=== PATIENT | female | born 1980 | race Caucasian/White ===

== ENCOUNTER 2017-08-03 09:50 | Emergency (ER) | payer OTHER ==
[~2017-08-03] VITALS: Ht 162.6 cm; Wt 63.5 kg
[~2017-08-03 09:50] MED LIST: ABILIFY 5 MG TAB5 MG PO; ACCUNEB SO1.25 MG/1 INH; AMBIEN 5 MG TABL5 M1 PO; ANALPRAM HC 1%30 GM RECTAL; ANTIVERT25 MG PO; BENADRYL25 MG PO; CIPRO500 MG PO; CIPROFLOXACIN500 M1 PO; CLONAZEPAM; CLONAZEPAM PO; COMPAZINE10 MG PO; DEPO-PROVERA; DIAZEPAM2 MG PO; DONNATAL EXTEN1 EACH PO; FAMOTIDINE PO; FIORICET 50-321 EACH; FIORICET-COD 51 EACH PO; FIORINAL WITH1 EACH PO; FLAGYL500 MG PO; FLEXERIL PO; HYDROCODON-ACE1 EAC7 PO; IMITREX 50 MG T50 MG PO; KEFLEX500 MG PO; LAMICTAL PO; LAMICTAL XR200 MG PO; LEVAQUIN 750 M750 MG; LEVSIN SL; LEXAPRO; MEDROLDOSEPACK PO; NASONEX17 GM; NORCO 5-325 TA1 EAC1 PO; NORCO 5-325 TA1 EACH PO; ONDANSETRON HCL4 M2 PO; PAIN & FEVER325 MG PO; PAXIL20 MG PO; PERCOCET 5-3251 EACH PO; PERCOCET 7.5-31 EACH PO; PHENERGAN 25 MG25 M1 PO; PHENERGAN25 MG RE; PRENATAL; PREVACID 30MG C30 M1 PG; PREVACID15 MG PO; PROAIR HFA8.5 GM INH; PROMETHAZINE D480 ML PO; PROTONIX40 MG PO; PYRIDIUM200 MG PO; SEROQUEL; SEROQUEL PO; SEROQUEL XR 30300 M1 PO; TESSALON PERLE100 MG PO; TOPAMAX50 MG PO; TRANSDERM-SCOP1 EACH TRANSDERM; TYLOX 5-500 CA1 EACH PO; ULTRAM 50MG TAB50 MG PO; VALIUM10 MG; VALIUM10 MG PO; XANAX 0.5 MG0.5 MG PO; ZOFRAN; ZOFRAN4 MG PO; ZPAK PO; ZYRTEC10 M2 PO; ZYRTEC10 M5 PO; [UNRECOGNIZED DRUG - OTHER]; [UNRECOGNIZED DRUG - OTHER]; [UNRECOGNIZED DRUG - OTHER]; [UNRECOGNIZED DRUG - OTHER] MC
[2017-08-03 10:24] LABS: URINE BLOOD TRACE (Negative); URINE CLARITY CLEAR; URINE COLOR YELLOW; URINE GLUCOSE-RANDOM TRACE (Negative); URINE KETONES NEGATIVE (Negative); URINE PROTEIN 1+ (Negative); URINE SPECIFIC GRAVITY 1.015 (1.005-1.030)
[2017-08-03 10:28] LABS: ICTOTEST (BILI CONFIRMATORY) Positive (Negative); URINE BILIRUBIN 1+ (Negative); URINE LEUKOCYTES-REFLEX 2+ (Negative); URINE NITRITE-REFLEX POSITIVE (Negative)
[2017-08-03 10:33] LABS: SQUAMOUS 4-10 Moderate /LPF (0-3); URINE RBC 3-10 Few /HPF (0-2); WBC CLUMPS Few (None Seen)
[2017-08-03 10:34] LABS: BACTERIA-REFLEX 1-9 Few /HPF (None Seen); CRYSTALS None Seen /LPF (None Seen); MUCUS 0-3 Light strn/LPF (None Seen); WAXY CAST 0-3 Few /LPF (None Seen)
[2017-08-03] MEDS ORDERED: MACROBID 100 M100 M1 PO (10:44)
[2017-08-03] MEDS ORDERED: ZOFRAN4 MG PO (10:49)
[2017-08-03 12:10] VITALS: BP 105/64
[2017-08-03] MEDS ORDERED: BACTRIM DS TAB1 EACH PO (12:47)
== END 2017-08-03 12:12 | disposition home or self-care (01) ==
LOC: M.ERS 09:50
PROVIDERS: Nurse Practitioner Family
DX: N39.0 Urinary tract infection, site not specified (principal); F41.0 Panic disorder [episodic paroxysmal anxiety]; F41.9 Anxiety disorder, unspecified; I45.6 Pre-excitation syndrome; Z90.49 Acquired absence of other specified parts of digestive tract; Z87.440 Personal history of urinary (tract) infections; Z87.442 Personal history of urinary calculi; Z88.8 Allergy status to other drugs, medicaments and biological substances; Z91.041 Radiographic dye allergy status; Z88.5 Allergy status to narcotic agent

== ENCOUNTER 2018-05-16 13:12 | Emergency (ER) | payer OTHER ==
[~2018-05-16] VITALS: Ht 162.6 cm; Wt 63.5 kg
[~2018-05-16 13:12] MED LIST changes: +BACTRIM DS TAB1 EACH PO; +MACROBID 100 M100 M1 PO
[2018-05-16 14:15] LABS: ABSOLUTE EOSINOPHILS 0.1 thou/uL (0.0-0.7); ABSOLUTE LYMPHOCYTES 1.8 thou/uL (0.8-5.3); ABSOLUTE MONOCYTES 0.3 thou/uL (0.0-1.2); ABSOLUTE NEUTROPHILS 3.5 thou/uL (1.6-8.1); BASOPHILS 0.6 %; EOSINOPHILS 1.4 %; HEMATOCRIT 40.8 % (37.0-47.0); HEMOGLOBIN 14.1 gm/dL (12.0-15.0); LYMPHOCYTES 31.2 %; MCH 31.6 pg (26.0-34.0); MCHC 34.6 g/dL (28.0-37.0); MCV 91.2 fL (80.0-100.0); MPV 7.1 fl. (7.2-11.1); NUCLEATED RBCS 0 /100WBC; PLATELET COUNT* 284 thou/uL (150-400); POLYS 61.8 %; RBC 4.47 mil/uL (4.20-5.00); RDW-CV 13.1 % (10.5-14.5); WBC 5.6 thou/uL (4.0-11.0)
[2018-05-16 14:20] LABS: ANION GAP 10 mmol/L (7-16); BUN 8 mg/dL (7-18); CALCIUM 8.8 mg/dL (8.5-10.1); CHLORIDE 102 mmol/L (98-107); CO2 25 mmol/L (21-32); CREATININE 0.9 mg/dL (0.6-1.3); GLUCOSE 112 mg/dL (70-99); POTASSIUM 3.4 mmol/L (3.5-5.1); SODIUM 137 mmol/L (136-145)
[2018-05-16 14:25] LABS: PROTIME 10.2 Seconds (9.20-11.50)
[2018-05-16 14:27] LABS: ALBUMIN 3.8 g/dL (3.4-5.0); ALKALINE PHOSPHATASE 91 U/L (46-116); LIPASE 87 U/L (73-393); SGOT 14 U/L (15-37); SGPT 18 U/L (30-65); TOTAL BILIRUBIN 0.4 mg/dL (<0.1-1.0); TOTAL PROTEIN 7.1 g/dL (6.4-8.2); TROPONIN-I LEVEL <0.06 ng/mL (<0.06)
[2018-05-16 16:10] LABS: URINE BILIRUBIN NEGATIVE (Negative); URINE BLOOD 3+ (Negative); URINE CLARITY CLEAR; URINE COLOR YELLOW; URINE GLUCOSE-RANDOM NEGATIVE (Negative); URINE KETONES NEGATIVE (Negative); URINE LEUKOCYTES-REFLEX NEGATIVE (Negative); URINE NITRITE-REFLEX NEGATIVE (Negative); URINE PROTEIN NEGATIVE (Negative); URINE UROBILINOGEN 0.2 E.U./dl (0.2-1.0)
[2018-05-16] MEDS ORDERED: CARAFATE 1 GM TA1 GM PO (16:21)
[2018-05-16] MEDS ORDERED: ULTRAM 50MG TAB50 MG PO (16:21)
[2018-05-16 16:23] LABS: MUCUS None Seen strn/LPF (None Seen); SQUAMOUS >10 Many /LPF (0-3)
[2018-05-16 16:24] LABS: CASTS None Seen /LPF (None Seen); CRYSTALS None Seen /LPF (None Seen); URINE RBC 3-10 Few /HPF (0-2); URINE WBC-REFLEX 0-5 Rare /HPF (0-5)
[2018-05-16 16:26] LABS: AMP/METHAMP Negative (Negative); BARBITURATES POSITIVE (Negative); BENZODIAZEPINES POSITIVE (Negative); COCAINE Negative (Negative); METHADONE Negative (Negative); OPIATES POSITIVE (Negative); PCP Negative (Negative); THC Negative (Negative)
[2018-05-16 16:36] VITALS: BP 99/68
--- NOTE | 2018-05-17 08:37 | EKG ---
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: : 1980 Requested By: Inez Akins Order Number: [id number] MD: Harris Dong Measurements Intervals [place] Rate: 77 P: 68 IA: 118 QRS: -23 QRSD: 98 T: 57 QT: 368 QTc: 417 Interpretive Statements Sinus rhythm Borderline short IA interval Borderline left axis deviation RSR' in V1 or V2, right VCD or RVH Compared to ECG 03/09/2017 01:34:15 No significant changes Electronically Signed On 05-17-2018 8:37:08 MOTORCOACH DRIVER by Harris Dong [email or web address] <ELECTRONICALLY SIGNED> By: Harris Dong MD, [facility] 05/17/18 0837 1317 1317 Harris Dong MD, [facility] /EPI
== END 2018-05-16 16:36 | disposition home or self-care (01) ==
LOC: M.ERS 13:12
PROVIDERS: Personal Emergency Response Attendant
DX: R07.89 Other chest pain (principal); F41.9 Anxiety disorder, unspecified; G20 Parkinson's disease; Z91.041 Radiographic dye allergy status; Z88.5 Allergy status to narcotic agent; Z90.49 Acquired absence of other specified parts of digestive tract; Z87.442 Personal history of urinary calculi

== ENCOUNTER 2018-06-27 15:01 | Emergency (ER) | payer OTHER ==
[~2018-06-27] VITALS: Ht 162.6 cm; Wt 63.5 kg
[~2018-06-27 15:01] MED LIST changes: +CARAFATE 1 GM TA1 GM PO
[2018-06-27] MEDS ORDERED: BUTALB-APAP-CA1 EACH PO (16:23)
[2018-06-27] MEDS ORDERED: ZOFRAN ODT4 MG PO (16:23)
[2018-06-27 16:55] VITALS: BP 124/79
== END 2018-06-27 16:57 | disposition home or self-care (01) ==
LOC: M.ERS 15:01
DX: G43.909 Migraine, unspecified, not intractable, without status migrainosus (principal); F41.0 Panic disorder [episodic paroxysmal anxiety]; I45.6 Pre-excitation syndrome; F41.9 Anxiety disorder, unspecified; Z91.041 Radiographic dye allergy status; Z88.5 Allergy status to narcotic agent; Z90.49 Acquired absence of other specified parts of digestive tract; Z87.442 Personal history of urinary calculi

== ENCOUNTER 2019-05-28 23:19 | Emergency (ER) | payer OTHER ==
[~2019-05-28] VITALS: Ht 162.6 cm; Wt 63.5 kg
[~2019-05-28 23:19] MED LIST changes: +BUTALB-APAP-CA1 EACH PO; +ZOFRAN ODT4 MG PO
[2019-05-28] MEDS ORDERED: LEXAPRO5 MG PO (23:27)
[2019-05-28 23:47] LABS: ABSOLUTE BASOPHILS 0.1 thou/uL (0.0-0.2); ABSOLUTE EOSINOPHILS 0.1 thou/uL (0.0-0.7); ABSOLUTE LYMPHOCYTES 1.6 thou/uL (0.8-5.3); ABSOLUTE MONOCYTES 0.5 thou/uL (0.0-1.2); ABSOLUTE NEUTROPHILS 4.2 thou/uL (1.6-8.1); BASOPHILS 0.8 %; EOSINOPHILS 1.1 %; HEMATOCRIT 41.8 % (37.0-47.0); HEMOGLOBIN 14.6 gm/dL (12.0-15.0); LYMPHOCYTES 25.3 %; MCH 31.2 pg (26.0-34.0); MCV 89.2 fL (80.0-100.0); MONOCYTES 8.1 %; MPV 6.9 fl. (7.2-11.1); NUCLEATED RBCS 0 /100WBC; PLATELET COUNT* 252 thou/uL (150-400); POLYS 64.7 %; RBC 4.69 mil/uL (4.20-5.00); RDW-CV 13.2 % (10.5-14.5); WBC 6.4 thou/uL (4.0-11.0)
[2019-05-28 23:58] LABS: CALCIUM 9.4 mg/dL (8.5-10.1); CREATININE 0.9 mg/dL (0.6-1.3); POTASSIUM 3.8 mmol/L (3.5-5.1)
[2019-05-29 00:09] LABS: TOTAL BILIRUBIN 0.4 mg/dL (<0.1-1.0); TOTAL PROTEIN 7.8 g/dL (6.4-8.2)
[2019-05-29] MEDS ORDERED: TORADOL 10 MG T10 MG PO (00:32)
[2019-05-29] MEDS ORDERED: VALIUM2 MG PO (00:32)
[2019-05-29 00:48] VITALS: BP 100/66
--- NOTE | 2019-05-29 11:19 | EKG ---
[place] [address] ELECTROCARDIOGRAM REPORT Name: DAVID VUONG Room: [facility]#: [id number] Admission: 05/28/19 Attend Phys: Discharge: 05/29/19 Date of : 80 Date of Service: 05/28/192322 Report #: [id number] THIS REPORT FOR: //name// [facility] ED Test Date: 2019-05-28 Test Time: 23:23:41 Pat Name: DAVID VUONG Department: Room: Gender: F [place]: [place] : 1980 Requested By: Noah Anderson Order Number: [id number] MD: Franklin Barrera Measurements Intervals [place] Rate: 126 P: 56 [place]: 117 QRS: -44 QRSD: 93 T: 86 QT: 309 QTc: 448 Interpretive Statements Sinus tachycardia RSR' in V1 or V2, right VCD or RVH Inferior infarct, old Compared to ECG 05/16/2018 13:17:15 Myocardial infarct finding now present Sinus rhythm no longer present Electronically Signed On 05-29-2019 11:18:30 MOTORCYCLE RIDING INSTRUCTOR by Franklin Barrera [email or web address] <ELECTRONICALLY SIGNED> By: Franklin Barrera MD, FACC 05/29/19 1118 2323 2323 Franklin Barrera MD, FAC /EPI
== END 2019-05-29 00:51 | disposition home or self-care (01) ==
LOC: M.ERS 23:19
PROVIDERS: Emergency Medicine
DX: R07.89 Other chest pain (principal); R00.2 Palpitations; F41.9 Anxiety disorder, unspecified; Z90.49 Acquired absence of other specified parts of digestive tract; Z87.442 Personal history of urinary calculi; Z88.5 Allergy status to narcotic agent; Z91.041 Radiographic dye allergy status

== ENCOUNTER 2020-01-03 16:26 | Emergency (ER) | payer OTHER ==
[~2020-01-03] VITALS: Ht 162.6 cm; Wt 65.8 kg
[~2020-01-03 16:26] MED LIST changes: +LEXAPRO5 MG PO; +TORADOL 10 MG T10 MG PO; +VALIUM2 MG PO
[2020-01-03] MEDS ORDERED: XOPENEX HFA15 GM INH (16:45)
[2020-01-03] MEDS ORDERED: ALLEGRA ALLERGY60 MG PO (16:45)
[2020-01-03 17:27] LABS: ABSOLUTE BASOPHILS 0.1 thou/uL (0.0-0.2); ABSOLUTE LYMPHOCYTES 1.9 thou/uL (0.8-5.3); ABSOLUTE MONOCYTES 0.7 thou/uL (0.0-1.2); BASOPHILS 0.8 %; EOSINOPHILS 0.1 %; HEMATOCRIT 39.9 % (37.0-47.0); LYMPHOCYTES 17.5 %; MCH 31.2 pg (26.0-34.0); MCHC 35.1 g/dL (28.0-37.0); MCV 88.8 fL (80.0-100.0); MONOCYTES 6.5 %; MPV 6.6 fl. (7.2-11.1); NUCLEATED RBCS 0 /100WBC; PLATELET COUNT* 265 thou/uL (150-400); POLYS 75.1 %; RDW-CV 13.6 % (10.5-14.5); WBC 10.6 thou/uL (4.0-11.0)
[2020-01-03 17:37] LABS: CALCIUM 9.6 mg/dL (8.5-10.1); CREATININE 0.8 mg/dL (0.6-1.3); POTASSIUM 3.5 mmol/L (3.5-5.1)
[2020-01-03 17:51] LABS: ALBUMIN 3.8 g/dL (3.4-5.0); TOTAL BILIRUBIN 0.2 mg/dL (<0.1-1.0)
[2020-01-03 20:02] VITALS: BP 111/73
--- NOTE | 2020-01-05 14:14 | EKG ---
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 <ELECTRONICALLY SIGNED> By: Ricki Cruz MD, [facility] 01/05/20 1413 1634 1634 Ricki Cruz MD, [facility] /EPI
== END 2020-01-03 19:49 | disposition home or self-care (01) ==
LOC: M.ERS 16:26
PROVIDERS: Physician Assistant
DX: R06.02 Shortness of breath (principal); F41.9 Anxiety disorder, unspecified; Z90.49 Acquired absence of other specified parts of digestive tract; Z87.440 Personal history of urinary (tract) infections; Z87.442 Personal history of urinary calculi; Z98.51 Tubal ligation status; Z91.041 Radiographic dye allergy status; Z88.6 Allergy status to analgesic agent

== ENCOUNTER 2020-06-12 14:16 | Observation (INO) | payer OTHER ==
[~2020-06-12] VITALS: Ht 160 cm; Wt 76.7 kg
[~2020-06-12 14:16] MED LIST changes: +ALLEGRA ALLERGY60 MG PO; +NEXIUM20 MG PO; -PREVACID15 MG PO; +XOPENEX HFA15 GM INH
[2020-06-12 14:23] VITALS: BP 127/79
[2020-06-12] MEDS ORDERED: VALTREX 500 MG500 M1 PO (14:26)
[2020-06-12 14:43] LABS: ABSOLUTE BASOPHILS 0.1 thou/uL (0.0-0.2); ABSOLUTE LYMPHOCYTES 1.9 thou/uL (0.8-5.3); ABSOLUTE MONOCYTES 0.4 thou/uL (0.0-1.2); ABSOLUTE NEUTROPHILS 5.5 thou/uL (1.6-8.1); BASOPHILS 0.7 %; EOSINOPHILS 0.6 %; HEMATOCRIT 39.1 % (37.0-47.0); HEMOGLOBIN 13.7 gm/dL (12.0-15.0); LYMPHOCYTES 24.2 %; MCH 31.1 pg (26.0-34.0); MCHC 34.9 g/dL (28.0-37.0); MCV 89.1 fL (80.0-100.0); MONOCYTES 5.6 %; MPV 6.4 fl. (7.2-11.1); NUCLEATED RBCS 0 /100WBC; PLATELET COUNT* 285 thou/uL (150-400); POLYS 68.9 %; RBC 4.39 mil/uL (4.20-5.00); RDW-CV 12.7 % (10.5-14.5)
[2020-06-12 14:49] LABS: URINE BILIRUBIN NEGATIVE (Negative); URINE BLOOD 2+ (Negative); URINE CLARITY CLEAR; URINE GLUCOSE-RANDOM NEGATIVE (Negative); URINE KETONES NEGATIVE (Negative); URINE LEUKOCYTES-REFLEX NEGATIVE (Negative); URINE NITRITE-REFLEX NEGATIVE (Negative); URINE PROTEIN NEGATIVE (Negative); URINE UROBILINOGEN 0.2 E.U./dl (0.2-1.0)
[2020-06-12 14:51] LABS: CALCIUM 8.6 mg/dL (8.5-10.1); CREATININE 0.8 mg/dL (0.6-1.3); POTASSIUM 3.4 mmol/L (3.5-5.1)
[2020-06-12 14:51] LABS: URINE COLOR PALE YELLOW
[2020-06-12 14:56] LABS: APTT 23.6 Seconds (25.0-31.3); PROTIME 10.4 Seconds (9.20-11.50)
[2020-06-12 14:58] LABS: AMP/METHAMP Negative (Negative); BARBITURATES Negative (Negative); BENZODIAZEPINES Negative (Negative); COCAINE Negative (Negative); METHADONE Negative (Negative); OPIATES Negative (Negative); PCP Negative (Negative); THC Negative (Negative)
[2020-06-12 14:59] LABS: CASTS None Seen /LPF (None Seen); CRYSTALS None Seen /LPF (None Seen); SQUAMOUS 4-10 Moderate /LPF (0-3); URINE RBC 0-2 Rare /HPF (0-2); URINE WBC-REFLEX 0-5 Rare /HPF (0-5)
[2020-06-12 15:02] LABS: ALBUMIN 4.1 g/dL (3.4-5.0); TOTAL BILIRUBIN 0.6 mg/dL (<0.1-1.0); TOTAL PROTEIN 7.1 g/dL (6.4-8.2)
[2020-06-12 18:35] VITALS: BP 104/66
[2020-06-12 18:49] VITALS: BP 126/86
[2020-06-12 23:37] VITALS: BP 98/58
[2020-06-13 03:56] VITALS: BP 111/65
[2020-06-13 04:24] LABS: HEMATOCRIT 36.2 % (37.0-47.0); HEMOGLOBIN 12.6 gm/dL (12.0-15.0); MCHC 34.7 g/dL (28.0-37.0); MCV 89.2 fL (80.0-100.0); MPV 6.7 fl. (7.2-11.1); RBC 4.06 mil/uL (4.20-5.00); WBC 4.9 thou/uL (4.0-11.0)
[2020-06-13 04:47] LABS: CALCIUM 8.8 mg/dL (8.5-10.1); CREATININE 0.7 mg/dL (0.6-1.3); POTASSIUM 3.2 mmol/L (3.5-5.1)
[2020-06-13] MEDS ORDERED: NITROGLYCERIN0.4 MG SUBLING (08:58)
[2020-06-13] MEDS ORDERED: ASPIRIN EC81 M1 PO (08:58)
[2020-06-13 09:25] VITALS: BP 111/65
--- NOTE | 2020-06-13 11:57 | EKG ---
[place] [address] ELECTROCARDIOGRAM REPORT Name: DAVID VUONG [address] [id number] Admission: 06/12/20 Attend Phys: Maday Landeros MD Discharge: 06/13/20 Date of : 80 Date of Service: 06/12/20 1623 Report #: [id number] THIS REPORT FOR: //name// 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 Repeat EKG. No acute abnormalities Electronically Signed On 06-13-2020 11:57:22 BALE COVERER by Jonny Grigsby [email or web address] <ELECTRONICALLY SIGNED> By: Alexandro Grigsby MD, [facility] 06/13/20 1157 1623 1623 Alexandro Grigsby MD, [facility] /EPI
--- NOTE | 2020-06-14 13:37 | EKG ---
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 : 1980 Requested By: Juan Manuel Lucas Order Number: [id number] MD: Ricki Cruz Measurements Intervals [place] Rate: 72 P: 43 [place]: 115 QRS: -25 QRSD: 107 T: 37 QT: 397 QTc: 435 Interpretive Statements Sinus rhythm Borderline short [place] interval Borderline left axis deviation RSR' in V1 or V2, right VCD Compared to ECG 01/03/2020 16:34:44 T-wave abnormality no longer present Electronically Signed On 06-14-2020 13:37:52 PULP MILL OPERATOR by Ricki Cruz [email or web address] <ELECTRONICALLY SIGNED> By: Ricki Cruz MD, [facility] 06/14/20 1337 1421 1421 Ricki Cruz MD, [facility] /EPI
== END 2020-06-13 09:45 | disposition left against medical advice (07) ==
LOC: M.ERS 14:16 → M.TBA-ER 17:05 → M.2W 18:43
PROVIDERS: Nurse Practitioner Family; ADMIT Family Medicine; ATTEND Family Medicine
DX: R07.89 Other chest pain (principal); K21.9 Gastro-esophageal reflux disease without esophagitis; R10.13 Epigastric pain; I45.6 Pre-excitation syndrome; Z79.899 Other long term (current) drug therapy; Z20.822 Contact with and (suspected) exposure to COVID-19

== ENCOUNTER → 2021-05-25 | Outpatient (CLI) | payer OTHER ==
[~2021-05-25] MED LIST changes: +ASPIRIN EC81 M1 PO; +CEPHALEXIN500 MG PO; +FLOMAX0.4 MG PO; +NITROGLYCERIN0.4 MG SUBLING; +NORCO5 PO; +ONDANSETRON ODT4 MG PO; +VALTREX 500 MG500 M1 PO
== END ==
LOC: M.CT 12:05
PROVIDERS: ATTEND Family Medicine
DX: K57.30 Diverticulosis of large intestine without perforation or abscess without bleeding (principal); M41.86 Other forms of scoliosis, lumbar region; Z90.49 Acquired absence of other specified parts of digestive tract

== ENCOUNTER 2021-05-26 07:12 | Emergency (ER) | payer OTHER ==
[~2021-05-26] VITALS: Ht 162.6 cm; Wt 74.8 kg
[~2021-05-26 07:12] MED LIST changes: -CEPHALEXIN500 MG PO; -FLOMAX0.4 MG PO; -NORCO5 PO; -ONDANSETRON ODT4 MG PO
[2021-05-26] MEDS ORDERED: NORCO5 PO (07:31)
[2021-05-26] MEDS ORDERED: ONDANSETRON ODT4 MG PO (07:31)
[2021-05-26] MEDS ORDERED: FLOMAX0.4 MG PO (07:31)
[2021-05-26 08:09] LABS: URINE BILIRUBIN NEGATIVE (Negative); URINE BLOOD 3+ (Negative); URINE CLARITY CLEAR; URINE COLOR YELLOW; URINE GLUCOSE-RANDOM NEGATIVE (Negative); URINE KETONES NEGATIVE (Negative); URINE LEUKOCYTES-REFLEX NEGATIVE (Negative); URINE NITRITE-REFLEX NEGATIVE (Negative); URINE PROTEIN TRACE (Negative); URINE SPECIFIC GRAVITY >= 1.030 (1.005-1.030); URINE UROBILINOGEN 0.2 E.U./dl (0.2-1.0)
[2021-05-26 08:10] LABS: ABSOLUTE LYMPHOCYTES 2.1 thou/uL (0.8-5.3); ABSOLUTE MONOCYTES 0.3 thou/uL (0.0-1.2); ABSOLUTE NEUTROPHILS 2.8 thou/uL (1.6-8.1); BASOPHILS 0.3 %; EOSINOPHILS 0.6 %; HEMATOCRIT 36.8 % (37.0-47.0); HEMOGLOBIN 12.7 gm/dL (12.0-15.0); LYMPHOCYTES 39.1 %; MCH 31.9 pg (26.0-34.0); MCHC 34.4 g/dL (28.0-37.0); MCV 92.8 fL (80.0-100.0); MONOCYTES 6.4 %; MPV 5.8 fl. (7.2-11.1); NUCLEATED RBCS 0 /100WBC; PLATELET COUNT* 182 thou/uL (150-400); POLYS 53.6 %; RBC 3.97 mil/uL (4.20-5.00); RDW-CV 14.3 % (10.5-14.5); WBC 5.2 thou/uL (4.0-11.0)
[2021-05-26 08:15] LABS: SQUAMOUS >10 Many /LPF (0-3); URINE RBC >20 Many /HPF (0-2); URINE WBC-REFLEX None Seen /HPF (0-5)
[2021-05-26 08:16] LABS: BACTERIA-REFLEX >30 Many /HPF (None Seen); CASTS None Seen /LPF (None Seen); MUCUS >6 Heavy strn/LPF (None Seen)
[2021-05-26 08:17] LABS: CRYSTALS None Seen /LPF (None Seen)
[2021-05-26 08:17] LABS: CALCIUM 8.5 mg/dL (8.5-10.1); CREATININE 0.8 mg/dL (0.6-1.3); POTASSIUM 3.7 mmol/L (3.5-5.1)
[2021-05-26 08:22] LABS: ALBUMIN 3.8 g/dL (3.4-5.0); TOTAL BILIRUBIN 0.5 mg/dL (<0.1-1.0)
[2021-05-26] MEDS ORDERED: PYRIDIUM200 MG PO (08:37)
[2021-05-26] MEDS ORDERED: CEPHALEXIN500 MG PO (08:37)
[2021-05-26] MEDS ORDERED: PERCOCET 5-3251 EACH PO (08:37)
[2021-05-26] MEDS ORDERED: PHENERGAN 25 MG25 M1 PO (08:37)
[2021-05-26 08:50] VITALS: BP 102/63
== END 2021-05-26 08:50 | disposition home or self-care (01) ==
LOC: M.ERS 07:12
PROVIDERS: Emergency Medicine Emergency Medical Services
DX: N12 Tubulo-interstitial nephritis, not specified as acute or chronic (principal); F41.9 Anxiety disorder, unspecified; K21.9 Gastro-esophageal reflux disease without esophagitis; Z90.49 Acquired absence of other specified parts of digestive tract; Z98.51 Tubal ligation status; Z79.899 Other long term (current) drug therapy; Z88.5 Allergy status to narcotic agent; Z91.041 Radiographic dye allergy status